=== PATIENT | female | born 1965 | race Caucasian/White ===

== ENCOUNTER 2017-07-14 22:50 | Emergency (ER) | payer MEDICAID ==
[2017-07-15 01:34] VITALS: BP 160/86
== END 2017-07-15 01:22 | disposition home or self-care (01) ==
LOC: ED 22:50
DX: S93.402A Sprain of unspecified ligament of left ankle, initial encounter (principal); I12.0 Hypertensive chronic kidney disease with stage 5 chronic kidney disease or end stage renal disease; M81.0 Age-related osteoporosis without current pathological fracture; N18.6 End stage renal disease; E11.9 Type 2 diabetes mellitus without complications; Z79.4 Long term (current) use of insulin; Z99.2 Dependence on renal dialysis; W01.0XXA Fall on same level from slipping, tripping and stumbling without subsequent striking against object, initial encounter; Y93.89 Activity, other specified; Y92.89 Other specified places as the place of occurrence of the external cause; Y99.8 Other external cause status
CPT/HCPCS: Q0092